=== PATIENT | female | born 1990 | race Caucasian/White ===

== ENCOUNTER 2018-06-28 13:00 | Outpatient (RCR) | payer SELFPAY ==
[2018-06-05 13:43] VITALS: BMI 33.2
--- OUTSIDE RECORDS SUMMARY | 2018-07-30 08:35 | XMS RPT_ITS ---
:1990 Author Organization OH[facility] Care Team Providers Name Role Phone VALENTINA KATE JUSTICE Attending Unavailable PROVIDER, UNKNOWN Referring Unavailable No, PCP Primary Care Unavailable DAVID NAIR Admitting Unavailable DAVID NAIR Attending Unavailable DAVID NAIR Primary Care Unavailable DAVID NAIR Consulting Unavailable PROVIDER, UNKNOWN Consulting Unavailable PROVIDER, UNKNOWN Consulting Unavailable PROVIDER, UNKNOWN Consulting Unavailable Heavenly Arthur Attending Unavailable Heavenly Arthur Referring Unavailable David Nair Primary Care Unavailable Heavenly Arthur Attending Unavailable PROBLEMS PROBLEMS No Problem Records FoundPROCEDURES PROCEDURES No Procedure Records FoundRESULTS RESULTS US THYROID Observed: 06/22/2018 Status: F Source: [facility] [place] 9:15 AM [place] [address] Patient: DELMAR ROBLES. Phone#: : 1990 Age: 27 Gender: F Pt. Type: Out Account: [id number] Location: Ordering: DAVID NAIR Exam Date: 06/22/2018/8:48 Family Phys: Charge Code: 105894 Physician: [place] Order #: [id number] DLP Dose#: PROCEDURE: THYROID ULTRASOUND COMPARISON: None. INDICATIONS: Hypothyroidism TECHNIQUE: High-resolution ultrasound was performed of the thyroid gland. FINDINGS: RIGHT LOBE: The echotexture is diffusely heterogeneous. No visible mass, cyst, calcification, enlargement, or abnormal echotexture. Right lobe measures 3.7 x 2.1 x 1.9 cm. LEFT LOBE: The echotexture is diffusely heterogeneous. No visible mass, cyst, calcification, enlargement, or abnormal echotexture. Left lobe measures 4.6 x 1.9 x 2.1 cm. ISTHMUS: Normal. No visible mass, cyst, calcification, enlargement, or abnormal echotexture. Isthmus measures 0.5 cm. OTHER: None. CONCLUSION: 1. Diffusely heterogeneous echodensity. There is no evidence of focal abnormality. Dictated by: Tiffany Denton MD on 06/22/2018 at 9:23 Approved by: Tiffany Denton MD on 06/22/2018 at 9:23 ORTHOPEDIC VISIT Observed: 06/12/2018 Status: F Source: [place] REPORT 4:22 PM [facility] REPOSITORY [facility] [address] [place] [address] OFFICE VISIT Date of Service: 06/05/18 MR#: [id number] Acct: [id number] Name: DELMAR ROBLES Rep #: [id number] : 1990 Provider: Heavenly Arthur DO Age/Sex: 27/F [place] [facility]: Signed Intake Vital Signs06/05/18 Height 5 ft 9 in 06/05/18 Weight: 225 lb 06/05/18 Body Mass Index (BMI) 33.2 Intake Visit Reasons: LEFT SHOULDER Is patient in pain?: Yes Pain scale (1-10): 4 Allergies Latex, Natural Rubber Allergy (Verified 06/05/18 13:47) Rash Medications levothyroxine 112 mcg capsule 112 mcg PO DAILY 06/05/18 [History Confirmed 06/05/18] loratadine 10 mg capsule 10 mg PO DAILY 06/05/18 [History Confirmed 06/05/18] multivitamin tablet 1 tab PO DAILY 06/05/18 [History Confirmed 06/05/18] norgestimate-ethinyl estradiol 0.18 mg/0.215mg/0.25mg-35 mcg(28)tablet 1 tab PO DAILY 06/05/18 [History Confirmed 06/05/18] HPI LEFT SHOULDER: Details: Delmar Robles is a 27 year old F here today for left SC joint pain. She states that a year ago she started having pain. 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 Patient has pain over her SC joint with no radiating pain. Patient states that she has pain with any activities. She states that she completed physical therapy which wasnt helpful. She has had 2 rounds of oral prednisone and had relief for about a month. Patient has seen a chiropractor which is helpful but she has to go every 2 weeks. She has taken muscle relaxers which wasnt helpful. Patient had an MRI which is here for review. She was told she needs a CT guided injection but it was very expensive. She had xrays as well which is brought with her. ROS Const Reports system reviewed and no additional complaints, except as docu Eyes Reports system reviewed and no additional complaints, except as docu ENT Reports system reviewed and no additional complaints, except as docu Card Reports system reviewed and no additional complaints, except as docu Resp Reports system reviewed and no additional complaints, except as docu GI Reports system reviewed and no additional complaints, except as docu Reports system reviewed and no additional complaints, except as docu Musc Reports joint pain Skin/Breast Reports system reviewed and no additional complaints, except as docu Neuro Yes system reviewed and no additional complaints, except as docu Psych Reports system reviewed and no additional complaints, except as docu Endo Reports system reviewed and no additional complaints, except as docu Assessment AND Plan 1. Pain of left sternoclavicular joint M25.512 Plan Personally reviewed the patient's medical history, medications, surgeries and recent exams if available. X-rays were reviewed. There is no obvious fracture, dislocation, or lucency noted. There is a nodule on left thyroid noted on MRI report. Educated on the anatomy of the SC joint, her treatment options are do nothing, or refer for CT guided injection. She should follow up with PCP regarding the thyroid nodule and suggest an Ultrasound. There is no instability on exam, there is tenderness at the joint, she already failed topical creams but may try dry needling superficially. Reviewed the risk of surgery for repair to the SC joint and that is the very last resort to address her pain and would refer to Dr Pena at [facility]. Follow up as needed or sooner if pain, swelling, numbness or associated symptoms, or concerns develop. All questions answered. Patient in agreement of plan. Coding Level of Care Code Off vis,new,level 3 Diagnoses Pain of left sternoclavicular joint M25.512 Laterality: left 06/12/18 1622 <Electronically signed by Heavenly Arthur DO> Date Heavenly Arthur DO Cosigner Signature: Date (if applicable) CC: ALLERGIES ALLERGIES DATE TYPE / CODE NAME / CODE REACTION SEVERITY SOURCE 06/05/2018 Drug Latex, Natural Rash Unknown [facility] Allergy/4160 Rubber/[id number] Hospital 43338(SNOMED 526(RXNORM) Repository CT) ENCOUNTERS ENCOUNTERS ADMIT/DISCHARGE ACCOUNT NUMBER ADMITTING ENCOUNTER LOCATION SOURCE CLASS 06/28/2018 [id number] Ambulatory [facility] Hospital ding:PT Repository 06/22/2018/06/22/20 [id number] DAVID NAIR Ambulatory [address] Repository 06/05/2018/06/05/20 [id number] Ambulatory BMSBuilding: [address] Repository 04/26/2018 [id number] Ambulatory [facility] Repository PAYERS PAYERS ENCOUNTER GUARANTOR PAYER SUBSCRIBER SOURCE 06/28/2018 DELMAR Ruiz Primary Insurance:SELF NOT GIVENThe [facility] RUN Number: [place], [place] Date:2018-06-05 Repository 19243Awx: () 06/22/2018 [facility] THERESAB: Insurance:[facility] [id number] [facility] [id number] [facility] [address] [facility] [address] [place], [place] Number: [address] [address]Eow: [phone] [phone] (HP) Date:Plan Name:[address], [place] [id number]: 06/05/2018 [facility] Insurance:MEDICAL FAITHB: [facility] [id number], Number: Repository de [address]Dpb: [id number] Date:[id number] [address] (HP) [address], [place] [address]XV: 06/05/2018 Secondary NOT GIVENUNK [place] Insurance:SELF PAY [facility] Number: Effective Repository Date:2018-06-05 04/26/2018 [facility]:Medical FaithB: [facility] [id number] [facility] [id number] [facility] [address] [address] Number: Effective [facility], Date: [place] [address]Zoy: (HP)
--- NOTE | 2018-12-12 14:55 | HP.PT.NRP ---
HP - Discharge Summary (1) - Patient Information DELMAR OBRIEN was seen in my office for initial evaluation on 06/13/18. The following Plan of Care was established for this patient: Initial Frequency: 2x /Week Initial Duration: 4 Weeks - Anticipated Interventions Manual Therapy Techniques to Include: Functional dry needling This patient was last seen in our office . Pertinent comments regarding their Physical therapy will appear below: Discharge- self pay dry needle patient. At this point I will be discontinuing this patient from physical therapy. I would be happy to see this patient again in the future if found appropriate by the physician. Thank you! KATY VillanuevaT
== END 2018-06-28 19:00 | disposition home or self-care (01) ==
LOC: PT 13:00
PROVIDERS: Family Provider Family Medicine; PCP Family Medicine; Referring Provider Orthopaedic Surgery; Visit Provider Orthopaedic Surgery
DX: Z98.890 Other specified postprocedural states (principal)

== ENCOUNTER → 2018-09-24 14:47 | Outpatient (CLI) | payer OTHER, SELFPAY ==
[2018-09-28 17:22] LABS: HPV Reflexed? NOT INDICATED
== END ==
PROVIDERS: Visit Provider Obstetrics & Gynecology
DX: Z12.4 Encounter for screening for malignant neoplasm of cervix (principal)
CPT/HCPCS: 87624; 88175; G0145

== ENCOUNTER → 2020-04-03 09:25 | Outpatient (CLI) | payer OTHER, SELFPAY ==
[2018-06-05 13:43] VITALS: BMI 33.2
--- NOTE | 2020-04-03 09:33 | US_ITS ---
STUDY: ULTRASOUND BREAST - RIGHT REASON FOR EXAM: Female, 29 years old. Palpable lump in the right breast. TECHNIQUE: Axial and longitudinal images of the RIGHT breast were performed with a high resolution ultrasound transducer. # OF IMAGES: 11 COMPARISON: Comparison is made with prior mammogram done earlier today. FINDINGS: RIGHT Breast: The palpable abnormality corresponds to a slightly lobular 2.3 cm x 2.4 cm x 1.7 cm hypoechoic nodule at the 1 o''clock position of the breast at 2 cm from nipple. This most likely represents a fibroadenoma although tissue diagnosis is recommended. US/Breast Limited Unilateral IMPRESSION: 2.3 cm x 2.4 cm x 1.7 signed a hypoechoic nodule at the 1 o''clock position of the breast at 2 cm from nipple. Biopsy is recommended. ASSESSMENT CATEGORY: BIRADS Category 4: Suspicious - Biopsy Should Be Considered. A letter regarding these results will be sent to the patient by the facility within 30 days. Electronically Signed: Shahzad Johnson, at 12:25 EDT , Service support ,
--- NOTE | 2020-04-03 09:33 | BI_ITS ---
MAMMOGRAPHY - BILATERAL DIAGNOSTIC REASON FOR EXAM: Female, 29 years old. Right breast lump. PERTINENT HISTORY: Non-contributory. TECHNIQUE: Digital bilateral breast concepción (3D mammographic acquisition) in the CC and MLO projections. 2-D mediolateral oblique (MLO) and craniocaudad (CC) views of both breasts were obtained. CAD: Full Field Digital Mammography with Computer Added Detection was performed. COMPARISON: None. Baseline examination. FINDINGS: Breast Composition: The breasts are heterogeneously dense, which may obscure small masses. The palpable abnormality corresponds to a 3 cm x 1.9 cm well-defined nodule in the retroareolar region of the right breast. Correlation with ultrasound is recommended. No other significant abnormalities are identified. BI/DIAG MAMM W/CAD, BILAT IMPRESSION: The palpable abnormality corresponds to a 3 cm x 1.9 cm well-defined nodule in the retroareolar region of the right breast. Correlation with ultrasound is recommended. ASSESSMENT CATEGORY: BIRADS Category 0: Incomplete. Need additional imaging evaluation. A letter regarding these results will be sent to the patient by the facility within 30 days. Approximately 10% of breast cancers are not detected by mammography. A normal mammogram should not delay biopsy of a clinically suspicious abnormality. Electronically Signed: Shahzad Johnson, at 12:24 EDT , Service support ,
== END ==
PROVIDERS: PCP Family Medicine; Referring Provider Obstetrics & Gynecology; Visit Provider Obstetrics & Gynecology
DX: N63.11 Unspecified lump in the right breast, upper outer quadrant (principal)
CPT/HCPCS: 76642; 77062; 77066; G0279